=== PATIENT | female | born 1985 | race African-American/Black ===

== ENCOUNTER 2021-03-06 17:14 | Emergency (ER) | payer OTHER | END 2021-03-06 18:00 | disposition left against medical advice (07) | LOC: M.ERS 17:14 | DX: R05.9 Cough, unspecified (principal); Z53.21 Procedure and treatment not carried out due to patient leaving prior to being seen by health care provider ==

== ENCOUNTER 2021-03-28 11:01 | Emergency (ER) | payer OTHER ==
[~2021-03-28] VITALS: Ht 182.9 cm; Wt 97.5 kg
[2021-03-28] MEDS ORDERED: ZOFRAN ODT4 MG PO (14:45)
[2021-03-28] MEDS ORDERED: MEDROLDOSEPACK PO (14:45)
[2021-03-28] MEDS ORDERED: ZPAK PO (14:45)
[2021-03-28] MEDS ORDERED: VENTOLIN HFA 1818 GM INH (14:45)
[2021-03-28 14:58] VITALS: BP 167/98
== END 2021-03-28 14:59 | disposition home or self-care (01) ==
LOC: M.ERS 11:01
DX: B34.9 Viral infection, unspecified (principal); Z20.822 Contact with and (suspected) exposure to COVID-19; R11.10 Vomiting, unspecified; Z98.890 Other specified postprocedural states